=== PATIENT | male | born 1980 | race Caucasian/White ===

== ENCOUNTER 2017-07-07 21:31 | Emergency (ER) | payer BC, OTHER ==
[~2017-07-07] VITALS: Ht 177.8 cm; Wt 69.3 kg
[2017-07-07] MEDS ORDERED: SODIUM CHLORIDE 0.9% 1,000 ML IV ONE (22:02)
[2017-07-07] MEDS ORDERED: ONDANSETRON 2MG/ML, 2ML ONE (22:16)
[2017-07-07] MEDS ORDERED: ONDANSETRON 2MG/ML, 2ML IVPush ONE (22:30)
[2017-07-07] MEDS ORDERED: SODIUM CHLORIDE FLUSH 10ML SYR IVF ONE (22:30)
[2017-07-07] MEDS ORDERED: SODIUM CHLORIDE 0.9% 1,000ML IVBOLUS ONE (22:30)
[2017-07-07 22:32] LABS: ASPARTATE AMINO TRANSFERASE 18 U/L (15-37); BLOOD UREA NITROGEN 14 mg/dL (7-18)
[2017-07-07 23:19] LABS: HEMATOCRIT 49.4 % (39.2-51.8); HEMOGLOBIN 16.4 g/dL (13.7-18.0); WHITE BLOOD COUNT 11.8 x10^3/uL (3.4-10)
[2017-07-07] MEDS ORDERED: KETOROLAC 30 MG/1 ML IVPush ONE (23:30)
[2017-07-07] MEDS ORDERED: KETOROLAC 30 MG/1 ML ONE (23:45)
[2017-07-08] MEDS ORDERED: SODIUM CHLORIDE 0.9% 1,000ML IVBOLUS ONE
[2017-07-08 01:28] VITALS: BP 115/70
== END 2017-07-08 01:46 | disposition home or self-care (01) ==
LOC: ED 23:59
DX: K52.89 Other specified noninfective gastroenteritis and colitis (principal); E86.9 Volume depletion, unspecified; E86.0 Dehydration; K52.9 Noninfective gastroenteritis and colitis, unspecified
CPT/HCPCS: 36415; 80053; 81001; 83690; 85025; 87086; 96361; 96374; 96375; 99284; J1885; J2405; J7030